=== PATIENT | female | born 1975 | race Two or more races ===

== ENCOUNTER 2024-11-29 16:52 | Emergency (ER) | payer BC ==
[2024-11-29 17:35] LABS: #Basophils Less than 0.03 10x3/uL (0.0-0.2); #Eosinophils Less than 0.03 10x3/uL (0.0-0.7); %Basophils 0.2 % (0.0-1.0); %Eosinophils 0.2 % (0.0-10.0); %Lymphocytes 11.4 % (21.0-51.0); %Monocytes 2.6 % (0.0-10.0); %Neutrophils 85.3 % (42.0-75.0); Hemoglobin 13.4 g/dL (12.0-16.0); Mean Corpuscular HGB CONC 34.4 g/dL (32.0-36.0); Mean Corpuscular Hemoglobin 29.4 pg (27.0-31.0); Mean Corpuscular Volume 85.5 fL (78.0-98.0); Mean Platelet Volume 8.9 fL (7.4-10.4); Platelet Count 264 10x3/uL (130-400); RBC Distribution Width 11.8 % (11.5-14.5); Red Blood Cell (RBC) Count 4.56 mill/uL (4.20-5.40)
[2024-11-29] MEDS ORDERED: Famotidine 20 MG TAB ONE (17:35)
[2024-11-29] MEDS ORDERED: Pantoprazole 40 MG DR.TAB ONE (17:39)
[2024-11-29 17:51] LABS: ALT (SGPT) 41 U/L (Less than 34); AST (SGOT) 42 U/L (11-34); Albumin 4.7 g/dL (3.1-4.5); Alkaline Phosphatase 90 U/L (40-110); Anion Gap 14 mmol/L (10-20); BUN (Urea Nitrogen) 12 mg/dL (9.8-20.1); Bilirubin, Total 0.8 mg/dL (0.3-1.2); Calc. Creatinine Clearance 0 mL/min (70-130); Calcium 9.8 mg/dL (7.8-10.44); Carbon Dioxide 23 mmol/L (22-29); Chloride 107 mmol/L (98-107); Estimated GFR 78; Glucose 95 mg/dL (70-105); Lipase 24 U/L (8-78); Protein, Total 7.7 g/dL (6.0-8.3); Sodium 140 mmol/L (136-145)
[2024-11-29 17:55] LABS: Troponin I Less than 0.010 ng/mL (< 0.028)
== END 2024-11-29 21:01 | disposition home or self-care (01) ==
LOC: ERS 16:52
DX: K82.4 Cholesterolosis of gallbladder (principal); R94.5 Abnormal results of liver function studies; Z55.6 Problems related to health literacy
CPT/HCPCS: 36415; 71045; 76705; 80053; 83690; 84484; 85025; 93005